=== PATIENT | female | born 1965 | race Caucasian/White ===

== ENCOUNTER 2020-03-30 15:22 | Outpatient (CLI) | payer OTHER, SELFPAY ==
[2020-03-31 21:06] LABS: SARS-CoV-2 RNA PCR Negative
== END 2020-03-30 15:23 | disposition home or self-care (01) ==
LOC: ANHCOVIDDT 15:26
PROVIDERS: PCP Internal Medicine; Visit Provider Family Medicine
DX: J02.9 Acute pharyngitis, unspecified (principal); Z20.822 Contact with and (suspected) exposure to COVID-19
CPT/HCPCS: C9803; U0003; U0005

== ENCOUNTER → 2020-04-06 06:50 | Outpatient (CLI) | payer OTHER, SELFPAY ==
[2020-04-07 01:37] LABS: SARS-CoV-2 RNA PCR Negative
== END ==
PROVIDERS: PCP Family Medicine; Visit Provider Family Medicine
DX: Z20.822 Contact with and (suspected) exposure to COVID-19 (principal)
CPT/HCPCS: C9803; U0003; U0005

== ENCOUNTER 2020-12-09 22:36 | Inpatient (IN) | payer OTHER, SELFPAY ==
--- NOTE | ~2020-12-09 | CT_ITS ---
EXAMINATION: CTA chest PE protocol DATE: 12/10/2020 09:01 CDT INDICATION: Shortness of breath. Elevated d-dimer. TECHNIQUE: Computed tomographic angiography (CTA) of the chest was performed with 100 mL Omnipaque-35 0 intravenous contrast. The dose-length product was 800.82 mGy-cm. Maximum intensity projection 3D-re constructions of the aorta and other arteries were constructed by the technologist on a separate work station. Automated exposure control and iterative reconstruction technique were employed. COMPARISON: CT dated 10/18/2015. FINDINGS: No thoracic lymphadenopathy. Study is technically adequate without evidence for pulmonary e mbolism. There is extensive patchy groundglass opacities throughout both lungs, consistent with pneum onia. Trace pleural effusions. No significant pericardial effusion. Cardiomegaly. There is mild media stinal and hilar lymphadenopathy, likely reactive. No pneumothorax. No endobronchial lesions. Moderat e thoracic spondylosis. IMPRESSION: 1. Extensive patchy bilateral groundglass opacities in both lungs, consistent with pneumonia. 2: No evidence for pulmonary embolism. Reviewed, dictated and finalized at location A. IMPRESSION: 1. Extensive patchy bilateral groundglass opacities in both lungs, consistent w ith pneumonia. 2: No evidence for pulmonary embolism.
--- NOTE | ~2020-12-09 | XR_ITS ---
EXAMINATION: XR chest 1V portable DATE: 12/09/2020 23:03 INDICATION: Cough and shortness of breath. TECHNIQUE: A single frontal view of the chest was obtained. COMPARISON: Chest 2 views 11/02/2016, chest CT 10/18/2015 FINDINGS: There are patchy airspace opacities throughout the lungs bilaterally. No pleural effusion o r pneumothorax. The heart size is normal. IMPRESSION: 1. Diffuse lung disease, consistent with pulmonary edema versus pneumonia. Reviewed, dictated and finalized at location A.
--- NOTE | 2020-12-09 22:40 | ECG_ITS ---
Measurements Intervals [place] Rate: 90 P: 59 IN: 155 QRS: 90 QRSD: 82 T: 45 QT: 328 QTc: 402 Interpretive Statements SINUS RHYTHM INCOMPLETE RIGHT BUNDLE BRANCH BLOCK DELAYED PRECORDIAL R/S TRANSITION LOW QRS VOLTAGE IN PRECORDIAL LEADS BORDERLINE T WAVE ABNORMALITY- ANT/INF LEADS BASELINE ARTIFACT- I, III, AVR, AVL BORDERLINE ECG Electronically Signed On 12-10-2020 6:20:52 CDT by Prieto Montelongo D.O.
[2020-12-09 22:43] VITALS: BP 123/70; PULSE 92; RESP 20; TEMP 37.4; O2SAT 83
[2020-12-09 23:05] VITALS: BP 127/75; PULSE 89; RESP 33; O2SAT 96
[2020-12-09 23:10] VITALS: O2SAT 99
--- NOTE | 2020-12-09 23:10 | ED.SOB ---
HPI - SOB/Dyspnea General Chief Complaint: Shortness of Breath/Dyspnea Stated Complaint: shortness of breath x 2 days Time Seen by Provider: 12/09/20 22:49 Source: patient and RN notes reviewed Mode of arrival: ambulatory Limitations: no limitations History of Present Illness HPI Narrative: This is a 55 year old female smoker with history of COPD and asthma who presents for evaluation of shortness of breath. She reports having worsening cough over the past 2 days. Her cough is productive with green sputum. She reports low grade fever, runny nose, sore throat and nausea. She denies chest pain, abdominal pain, vomiting or diarrhea. She states she has been vaccinated for covid but has not had booster. She was found to be hypoxic in triage and she denies history of oxygen dependence. SHe denies cardiac disease or new edema . Related Data Home Medications Medication Instructions Recorded Confirmed acetaminophen [Tylenol] 325 mg PO TID 12/10/20 12/10/20 albuterol sulfate 2 puff INHALATION QID 12/10/20 12/10/20 alprazolam 1 mg PO TID 12/10/20 12/10/20 cyclobenzaprine 10 mg PO TID 12/10/20 12/10/20 diclofenac sodium 100 mg PO DAILY 12/10/20 12/10/20 folic acid 1 mg PO DAILY 12/10/20 12/10/20 gabapentin 600 mg PO DAILY 12/10/20 12/10/20 lisinopril 20 mg PO DAILY 12/10/20 12/10/20 magnesium oxide 250 mg PO BID 12/10/20 12/10/20 methotrexate sodium 25 mg PO WEEKLY 12/10/20 12/10/20 brrpajymnthl-[id number]-bhljzd 1 tablet PO DAILY 12/10/20 12/10/20 [Centrum Silver] norethindrone acetate 5 mg PO DAILY 12/10/20 12/10/20 omeprazole 20 mg PO DAILY 12/10/20 12/10/20 prednisone 15 mg PO DAILY 12/10/20 12/10/20 sertraline 200 mg PO DAILY 12/10/20 12/10/20 tramadol 50 mg PO TID 12/10/20 12/10/20 vitamin E 400 unit PO DAILY 12/10/20 12/10/20 Allergies Allergy/AdvReac Type Severity Reaction Status Date / Time clarithromycin Allergy Mild Vomiting Verified 12/10/20 01:57 erythromycin base Allergy Mild Vomiting Verified 12/10/20 01:57 Review of Systems Review of Systems: All systems reviewed & are unremarkable except as noted in HPI and below PMFSH Past Medical History Medical History (Updated 12/10/20 @ 08:34 by Priscila Thompson MD) COPD (chronic obstructive pulmonary disease) Hypertension Rheumatoid arthritis Surgical History Surgical History (Updated 12/09/20 @ 23:52 by Priscila Thompson MD) History of hysterectomy Family History Family History Mother Cerebrovascular accident Diabetes mellitus History of blood clots Chronic obstructive pulmonary disease Father Family history of cardiovascular disease Acute myocardial infarction Chronic obstructive pulmonary disease Other Asthma Family history of allergic disorder Family history of kidney disease Family history of malignant neoplasm Hypertension Social History Social History (Updated 12/09/20 @ 23:51 by Priscila Thompson MD) Smoking packs per day: 1 Smoking cigarettes per day: 20.0 Years smoked: 20 Smoking pack-years: 20.00 Smoking status: Current every day smoker Tobacco type: cigarettes Alcohol intake: never Substance use: never Spiritual care concerns: No Exam Const: General: alert and ill appearing Nutritional Appearance: obese Orientation/consciousness: patient oriented x3 HENMT: Head: normocephalic and atraumatic Eyes: EOM: EOMs intact bilaterally Resp: Effort & Inspection: normal respiratory effort, not labored, no retractions and not tachypneic Auscultation: crackles Cardio: Rate: regular rate Rhythm: regular rhythm Heart sounds: no murmurs GI: GI Palp: Yes Soft to palpation, No Tenderness to palpation present (GI) and No Guarding due to palpation present (GI) Auscultation: normal bowel sounds Skin: General skin exam: normal color Rashes: no rashes Neuro: General: patient oriented x3, moves all extremities and CN's II-XI intact bila
[2020-12-09 23:40] LABS: Basophils Absolute Auto 0.1 K/mm3 (0.0-0.1); Basophils Percent Auto 0.4 % (0.2-1.2); Eosinophils Absolute Auto 0.5 K/mm3 (0-0.3); Eosinophils Percent Auto 3.8 % (0-4.4); Hematocrit 38.7 % (37.0-47.0); Hemoglobin 12.7 g/dL (12.0-15.0); Immature Granulocyte Absolute 0.09 K/mm3 (0.00-0.031); Immature Granulocyte Percent A 0.7 % (0-0.5); Lymphocytes Absolute Auto 1.22 K/mm3 (0.9-3.2); Lymphocytes Percent Auto 9.7 % (18.3-44.2); Mean Corpuscular HGB Conc 32.8 g/dl (32-36); Mean Corpuscular Volume 97.5 fl (80-100); Mean Platelet Volume 11.6 fl (7.4-10.4); Monocytes Absolute Auto 0.7 K/mm3 (0.1-0.6); Monocytes Percent Auto 5.8 % (2.6-8.5); Neutrophils Absolute Auto 10.1 K/mm3 (1.3-6.7); Neutrophils Percent Auto 79.6 % (45.5-73.1); Platelet Count Result 285 k/mm3 (150-375); Red Blood Count 3.97 M/mm3 (4.2-5.4); Red Cell Distribution Width 15.2 % (11.5-14.5); White Blood Count 12.6 K/mm3 (4.5-10.0)
[2020-12-09 23:58] LABS: Prothrombin Time 13.3 Seconds (11.1-14.7)
[2020-12-09 23:59] LABS: Partial Thromboplastin Time 32.8 SECONDS (22.3-36.8)
[2020-12-10] VITALS (19 sets, daily range): BP systolic 118–160; BP diastolic 72–90; PULSE 76–92; RESP 20–44; TEMP 36.8–37; O2SAT 96–100; BMI 43.0
[2020-12-10 00:17] LABS: Anion Gap 8 mmol/L (8-16); Blood Urea Nitrogen 17 mg/dL (7-17); Calcium 8.5 mg/dL (8.4-10.2); Carbon Dioxide 25 mmol/L (22-30); Chloride 108 mmol/L (98-107); Estimated Glomerular Filt Rate > 60; Glucose 112 mg/dL (65-110); Potassium 4.4 mmol/L (3.4-5.0); Sodium 141 mmol/L (137-145)
[2020-12-10 00:19] LABS: Alveolar/Arterial O2 Gradient 150.6 mmHg; Base Excess ABG -1.4 mEq/l (+/-2.0); Carboxyhemoglobin 1.6 % THb (0-2.0); Fractional Inspired Oxygen 36 %; HCO3 ABG 21.4 mEq/l (22.0-26.0); Methemoglobin ABG 0.1 %THb (0-1.5); Oxygen Content ABG 17.4 %vol (16.0-22.0); Oxygen Saturation ABG 95.3 % (95.0-100.0); PCO2 ABG 30.4 mmHg (35.0-45.0); PO2 ABG 70.8 mmHg (80.0-100.0); PO2 FiO2 Ratio Arterial Blood 1.97 %; Reduced Hemoglobin 5.3 %THb (0-5.0); Total Hemoglobin 13.3 g/dL (12.0-18.0); pH ABG 7.465 (7.350-7.450)
[2020-12-10 00:20] LABS: Device NASAL CANNULA; Modified Allen's Test Pass; Site Drawn RIGHT RADIAL
[2020-12-10 00:24] LABS: Alanine Aminotransferase 31 U/L (4-35); Albumin Level 3.9 g/dL (3.5-5.1); Alkaline Phosphatase 112 U/L (38-126); Aspartate Amino Transferase 52 U/L (14-36); Bilirubin,Total 0.7 mg/dL (0.2-1.3)
[2020-12-10 00:37] LABS: NT Pro B Type Natriuretic Pept 1880 pg/mL (5-100); Troponin I 0.179 ng/mL (0.000-0.034)
[2020-12-10 00:39] LABS: CRP 17.5 mg/dL (<1.0)
--- NOTE | 2020-12-10 01:29 | PC.NURSE ---
Pt in imaging at this time
[2020-12-10] MEDS: ALBUTEROL SULFATE NEB 2.5 MG/0.5 ML INH 5 MG INHALATION (03:01)
[2020-12-10] MEDS: IPRATROPIUM BR 0.02% INH SOLN 0.5 MG/2.5 ML VIAL INHALATION (03:02)
[2020-12-10] MEDS: predniSONE 20 MG TABLET 60 MG PO (03:34)
[2020-12-10 04:27] LABS: Troponin I 0.138 ng/mL (0.000-0.034)
--- NOTE | 2020-12-10 06:00 | ADMGEN ---
This patient, Jazmine Arthur, was admitted to IMU Room 232-01. Patient/family oriented to hospital policies and general routines including ID bracelet, bed and alarms, visiting hours, pain management, procedures, bathroom and other care routines, personal items, smoking policy, room service/diet, and visiting hours. Information on how to activate the Rapid Response Team has been discussed. Patient/Family are encouraged to report perceived risks to care and to ask questions if they do not understand what they are told or what they should do.
[2020-12-10 07:40] LABS: Troponin I 0.106 ng/mL (0.000-0.034)
--- NOTE | 2020-12-10 08:08 | PM.IMHP ---
H&P: HPI History of Present Illness Date/Time: 12/10/20 08:08 This is a 55 year old female smoker with history of COPD and asthma who presents for evaluation of shortness of breath. The patient was in his usual state of health until last Saturday. There is no established sick contact. She reports having worsening cough over the past 2 days. Her cough is productive with greenish and brownish sputum. She endorses a low grade fever, runny nose, sore throat and nausea. She denies chest pain, abdominal pain, vomiting or diarrhea. She states she has been fully vaccinated for covid but has not had booster. On admission in the emergency department she has the following vital signs: Tmax 98.3 F, pulse rate 91, R 20, pulse ox 99% on oxygen 5 liters via nasal canula. She was found to be hypoxic in triage and she denies history of oxygen dependence. She denies cardiac disease or new edema . Chest Xray was performed. She was started on intravenous levofloxacin. The patient was admitted inpatient to the stepdown unit. Chief Complaint: shortness of bretah productive cough Review of Systems Review of Systems: ROS unobtainable: Yes unobtainable due to endotracheal tube Constitutional: Constitutional: Reports fatigue Comments: fever Eyes: Eyes: Reports no additional eye complaints ENT: Reports system reviewed and no additional complaints, except as documented Cardiovascular: Cardiovascular: Reports no additional cardiovascular complaints Respiratory: Respiratory: Reports cough and Reports dyspnea Gastrointestinal: Gastrointestinal: Denies abdominal pain, Denies diarrhea, Denies nausea and Denies vomiting Comments: dysphagia Genitourinary: Genitourinary: Reports no additional female genitourinary complaints Musculoskeletal: Musculoskeletal: Reports no additional musculoskeletal complaints Integumentary/Breasts: Skin/Breast: Denies rash Neurologic: Reports system reviewed and no additional complaints, except as documented Psychiatric: Psychiatric: Reports no additional psychiatric complaints FOR[facility]LY [facility], [facility] Past Medical History Medical History (Updated 12/10/20 @ 16:44 by Natasha Baird MD) COPD (chronic obstructive pulmonary disease) Hypertension Rheumatoid arthritis Surgical History Surgical History (Updated 12/09/20 @ 23:52 by Priscila Thompson MD) History of hysterectomy Family History Family History Mother Cerebrovascular accident Diabetes mellitus History of blood clots Chronic obstructive pulmonary disease Father Family history of cardiovascular disease Acute myocardial infarction Chronic obstructive pulmonary disease Other Asthma Family history of allergic disorder Family history of kidney disease Family history of malignant neoplasm Hypertension Social History Social History (Updated 12/09/20 @ 23:51 by Priscila Thompson MD) Smoking packs per day: 1 Smoking cigarettes per day: 20.0 Years smoked: 20 Smoking pack-years: 20.00 Smoking status: Current every day smoker Tobacco type: cigarettes Alcohol intake: never Substance use: never Spiritual care concerns: No Meds Home Medications and Allergies Home Medications Medication Instructions Recorded Confirmed Type acetaminophen [Tylenol] 325 mg PO TID 12/10/20 12/10/20 History albuterol sulfate 2 puff INHALATION QID 12/10/20 12/10/20 History alprazolam 1 mg PO TID 12/10/20 12/10/20 History cyclobenzaprine 10 mg PO TID 12/10/20 12/10/20 History diclofenac sodium 100 mg PO DAILY 12/10/20 12/10/20 History folic acid 1 mg PO DAILY 12/10/20 12/10/20 History gabapentin 600 mg PO DAILY 12/10/20 12/10/20 History lisinopril 20 mg PO DAILY 12/10/20 12/10/20 History magnesium oxide 250 mg PO BID 12/10/20 12/10/20 History methotrexate sodium 25 mg PO WEEKLY 12/10/20 12/10/20 History udqlyhsfcfzf-kntjotek-nacwtb 1 tablet PO DAILY 12/10/20 12/10/20 History [Centrum Silver]
[2020-12-10] MEDS: ACETAMINOPHEN 325 MG TABLET PO ×3 (10:01→16:52)
[2020-12-10] MEDS: GABAPENTIN 300 MG CAPSULE 600 MG PO (10:02)
[2020-12-10] MEDS: CYCLOBENZAPRINE HCL 10 MG TABLET PO ×3 (10:02→16:52)
[2020-12-10] MEDS: ALPRAZolam (*CRX) 0.5 MG TABLET 1 MG PO ×3 (10:02→16:52)
[2020-12-10] MEDS: traMADol HCL (*CRX) 50 MG TABLET PO ×3 (10:02→16:52)
[2020-12-10] MEDS: SERTRALINE HCL 50 MG TABLET 200 MG PO (10:03)
[2020-12-10] MEDS: predniSONE 5 MG TABLET 15 MG PO (10:03)
[2020-12-10] MEDS: PANTOPRAZOLE 40 MG TABLET PO (10:04)
[2020-12-10] MEDS: VITAMIN E 400 UNIT CAPSULE PO (10:04)
[2020-12-10] MEDS: FOLIC ACID 1 MG TABLET PO (10:04)
[2020-12-10] MEDS: lisinopriL 20 MG TABLET PO (10:05)
[2020-12-10] MEDS: ALBUTEROL SULFATE (*SP) AEROSOL 1 PUFF 2 PUFF INHALATION ×3 (13:34→17:00)
[2020-12-10 17:03] LABS: SARS-CoV-2 RNA PCR Negative
[2020-12-10 18:16] LABS: Troponin I 0.027 ng/mL (0.000-0.034)
[2020-12-11] VITALS (17 sets, daily range): BP systolic 104–148; BP diastolic 51–91; PULSE 70–90; RESP 16–24; TEMP 36.3–37.1; O2SAT 92–100
[2020-12-11 05:32] LABS: Basophils Percent Auto 0.2 % (0.2-1.2); Eosinophils Absolute Auto 0.3 K/mm3 (0-0.3); Eosinophils Percent Auto 1.7 % (0-4.4); Hematocrit 37.1 % (37.0-47.0); Hemoglobin 12.1 g/dL (12.0-15.0); Immature Granulocyte Absolute 0.15 K/mm3 (0.00-0.031); Lymphocytes Absolute Auto 1.84 K/mm3 (0.9-3.2); Lymphocytes Percent Auto 12.3 % (18.3-44.2); Mean Corpuscular HGB Conc 32.6 g/dl (32-36); Mean Corpuscular Hemoglobin 32.1 pg (26-34); Mean Corpuscular Volume 98.4 fl (80-100); Mean Platelet Volume 11.5 fl (7.4-10.4); Monocytes Absolute Auto 0.9 K/mm3 (0.1-0.6); Monocytes Percent Auto 6.1 % (2.6-8.5); Neutrophils Absolute Auto 11.8 K/mm3 (1.3-6.7); Neutrophils Percent Auto 78.7 % (45.5-73.1); Platelet Count Result 281 k/mm3 (150-375); Red Blood Count 3.77 M/mm3 (4.2-5.4); Red Cell Distribution Width 15.1 % (11.5-14.5)
[2020-12-11 05:48] LABS: Alanine Aminotransferase 33 U/L (4-35); Albumin Level 3.5 g/dL (3.5-5.1); Alkaline Phosphatase 101 U/L (38-126); Anion Gap 6 mmol/L (8-16); Aspartate Amino Transferase 28 U/L (14-36); Bilirubin,Total 0.4 mg/dL (0.2-1.3); Blood Urea Nitrogen 18 mg/dL (7-17); Carbon Dioxide 32 mmol/L (22-30); Chloride 102 mmol/L (98-107); Estimated CRCL calculation 81 ml/min; Estimated Glomerular Filt Rate > 60; Glucose 97 mg/dL (65-110); Potassium 4.4 mmol/L (3.4-5.0); Sodium 140 mmol/L (137-145)
[2020-12-11 05:56] LABS: Troponin I 0.023 ng/mL (0.000-0.034)
[2020-12-11] MEDS: ALBUTEROL SULFATE (*SP) AEROSOL 1 PUFF 2 PUFF INHALATION ×4 (08:20→21:03)
[2020-12-11] MEDS: ALPRAZolam (*CRX) 0.5 MG TABLET 1 MG PO ×3 (08:31→18:13)
[2020-12-11] MEDS: traMADol HCL (*CRX) 50 MG TABLET PO ×3 (08:31→18:13)
[2020-12-11] MEDS: ACETAMINOPHEN 325 MG TABLET PO ×3 (08:31→18:13)
[2020-12-11] MEDS: CYCLOBENZAPRINE HCL 10 MG TABLET PO ×3 (08:31→18:13)
[2020-12-11] MEDS: predniSONE 5 MG TABLET PO (08:32)
[2020-12-11] MEDS: VITAMIN E 400 UNIT CAPSULE PO (08:32)
[2020-12-11] MEDS: SERTRALINE HCL 50 MG TABLET 200 MG PO (08:32)
[2020-12-11] MEDS: PANTOPRAZOLE 40 MG TABLET PO (08:33)
[2020-12-11] MEDS: lisinopriL 20 MG TABLET PO (08:33)
[2020-12-11] MEDS: GABAPENTIN 300 MG CAPSULE 600 MG PO (08:33)
[2020-12-11] MEDS: MAGNESIUM OXIDE 200 MG TABLET PO ×2 (08:34→18:14)
[2020-12-11] MEDS: METHOTREXATE 2.5 MG TAB (*CHEMO) 25 MG PO (08:34)
[2020-12-11] MEDS: FOLIC ACID 1 MG TABLET PO (08:34)
--- NOTE | 2020-12-11 09:39 | ECG_ITS ---
Measurements Intervals [place] Rate: 83 P: 64 [place]: 132 QRS: 69 QRSD: 107 T: 14 QT: 398 QTc: 468 Interpretive Statements SINUS RHYTHM ATRIAL AND VENTRICULAR PREMATURE COMPLEXES BORDERLINE T WAVE ABNORMALITY- ANTERIOR LEADS BASELINE ARTIFACT- I, III, AVL, AVF, V6 BORDERLINE ECG Electronically Signed On 12-11-2020 14:32:53 CDT by Prieto Montelongo D.O.
--- NOTE | 2020-12-11 10:43 | PM.IMPN ---
Progress Note: A&P Assessment and Plan (1) Acute respiratory failure with hypoxia: Code(s): J96.01 - Acute respiratory failure with hypoxia Status: Acute Assessment and Plan: Admitted to IMU Respiratory status has improved overnight. COVID test negative Currently weaned to room air Baseline diagnosis of asthma, and COPD Currently no evidence of COPD/asthma exacerbation Continue inhaler as needed; nebulizer s/p prednisone 60 mg once on 12/09/2020. Currently steroids on hold. (2) Pneumonia: Qualifiers: Laterality: bilateral Pneumonia type: due to unspecified organism Code(s): J18.9 - Pneumonia, unspecified organism Status: Acute Assessment and Plan: Patient presents classic symptoms of community acquired pneumonia. Chest Xray suggests diffuse lung disease, consistent with pulmonary edema versus bronchopneumonia. We will continue IV levaquin. Blood cultures are currently pending. (3) Person under investigation for COVID-19: Code(s): Z20.822 - Contact with and (suspected) exposure to COVID-19 Status: Acute Assessment and Plan: COVID PCR is negative. Patient is fully vaccinated No known sick contact Stop aerosol and contact precautions (4) Smoking greater than 20 pack years: Code(s): F17.210 - Nicotine dependence, cigarettes, uncomplicated Status: Acute Assessment and Plan: Smoking cessation Nicotine patch PRN (5) Hypertension: Code(s): I10 - Essential (primary) hypertension Status: Acute Assessment and Plan: Moderately controlled. Current BP 136/91. Continue lisinopril 20 mg PO daily (6) Rheumatoid arthritis: Code(s): M06.9 - Rheumatoid arthritis, unspecified Status: Acute Assessment and Plan: Previously on methotrexate 25 mg PO weekly and prednisone 15 mg PO daily. Prednisone 60 mg PO once given on 12/09/2020. Decrease prednisone to 5 mg PO daily due to acute illness. (7) Nausea: Code(s): R11.0 - Nausea Status: Acute Assessment and Plan: Unspecific. Give zofran and tums PRN. Subjective Date/time seen: 12/11/20 10:43 S: Patient is examined at the bedside. She is saturating 91% on room air. She is motivated to stop smoking. She reports nausea, which is also a side effect with the methotrexate that was started 2 months ago. Nausea started prior to methotexate administration. Review of Systems Constitutional: Constitutional: Reports difficulty sleeping and Reports fatigue Eyes: Eyes: Reports no additional eye complaints ENT: Reports system reviewed and no additional complaints, except as documented Cardiovascular: Cardiovascular: Reports no additional cardiovascular complaints and Reports dyspnea Respiratory: Respiratory: Reports cough and Reports dyspnea Gastrointestinal: Gastrointestinal: Denies abdominal pain, Denies diarrhea, Denies nausea and Denies vomiting Genitourinary: Genitourinary: Reports no additional female genitourinary complaints Musculoskeletal: Musculoskeletal: Reports no additional musculoskeletal complaints Integumentary/Breasts: Skin/Breast: Denies rash Neurologic: Reports system reviewed and no additional complaints, except as documented Psychiatric: Psychiatric: Reports no additional psychiatric complaints Endocrine: Endocrine: Reports fatigue Exam Const: General: comfortable and no acute distress HENMT: Mouth: Yes moist mucous membranes Eyes: General: appearance normal, both eyes and all related structures Neck: Neck: supple and no JVD Lymphatic: lymphadenopathy not noted Resp: Auscultation: no crackles, rhonchi, no wheezes and diminished lung sounds Cardio: Rate: regular rate Rhythm: regular rhythm Heart sounds: no gallops, no murmurs and no rubs GI: Inspection: non-distended GI Palp: Yes Soft to palpation and No Tenderness to palpation present (GI) Skin: General skin exam: no rashes or lesions noted Neuro:
--- NOTE | 2020-12-11 11:18 | PC.NURSE ---
Daughter called back and was given an update on this patients condition and current plan of care. All questions answered per Kaya.
[2020-12-11] MEDS: WATER FOR IRRIGATION, STERILE 1,000 ML BOTTLE 1000 ML (11:55)
[2020-12-11] MEDS: NICOTINE (*PBKC) 4 MG GUM PO (15:35)
[2020-12-12] VITALS (11 sets, daily range): BP systolic 100–138; BP diastolic 51–72; PULSE 72–84; RESP 16–28; TEMP 36–36.8; O2SAT 90–97
--- NOTE | 2020-12-12 | ECHO_ITS ---
Patient Info Name: Jazmine Arthur Age: 55 years : 1965 Gender: Female Ht: 62 in Wt: 235 lbs BSA: 2.22 m2 HR: 75 bpm BP: 113 / 68 mmHg Technical Quality: Fair Exam Date: 12/12/2020 9:44 AM Exam Location: [facility] Patient Status: Inpatient Admit Date: 12/10/2020 Staff Ordering Physician: Natasha Baird MD Wind Turbine Electrical Engineer: Archie Garcia, ASH, RT Attending Provider: Nina Parikh MD Exam Type: CA echo doppler color flow Study Info Indications I50.9 - Heart failure, unspecified Complete two-dimensional, color flow and Doppler transthoracic echocardiogram is performed. Strain analysis performed. Summary 1. Complete two-dimensional, color flow and Doppler transthoracic echocardiogram is performed. 2. Left ventricular chamber dimension is normal. 3. Left ventricular systolic function is normal, estimated at 65-70%. 4. The left ventricular diastolic function is grade I diastolic dysfunction. 5. E/e' 12 is mildly elevated. 6. Global longitudinal strain is normal at -18.2%. 7. There is trivial pericardial effusion. Left Ventricle E/e' 12 is mildly elevated. Global longitudinal strain is normal at -18.2%. Left ventricular chamber dimension is normal. Left ventricular systolic function is normal, estimated at 65-70%. The left ventricular diastolic function is grade I diastolic dysfunction. Right Ventricle Right ventricular systolic function is normal and with normal TAPSE 2.7 cm. Right ventricular chamber dimension is normal. Left Atria Left atrial chamber dimension is normal. Right Atria Right atrial chamber dimension is normal. Aortic Valve The aortic valve is trileaflet. There is no aortic valve stenosis. There is no aortic valve regurgitation. Pulmonic Valve There is no pulmonic regurgitation. Mitral Valve There is no mitral valve stenosis. There is no mitral valve regurgitation. Tricuspid Valve There is no tricuspid valve regurgitation. Pericardium/Pleural There is trivial pericardial effusion. Inferior Vena Cava Normal inferior vena cava with >50% collapse upon inspiration consistent with normal right atrial pressure, 5 mmHg. Aorta The aortic root size at the sinus of Valsalva is normal. Left Ventricular Outflow Tract Name Value Normal LVOT 2D LVOT Diameter 2.1 cm LVOT Doppler LVOT Peak Gradient 5 mmHg LVOT Mean Gradient 3 mmHg LVOT VTI 21 cm LVOT VTI/AV VTI Ratio 0.7 LVOT Stroke Volume 75 ml LVOT CO 5.8 l/min LVOT CI 2.6 l/min/m2 Mitral Valve Name Value Normal MV Doppler MV Decel [place] 319 cm/s2 MV PHT 82 ms
[2020-12-12] MEDS: ALBUTEROL SULFATE (*SP) AEROSOL 1 PUFF 2 PUFF INHALATION ×4 (08:37→19:43)
[2020-12-12] MEDS: CYCLOBENZAPRINE HCL 10 MG TABLET PO ×3 (09:43→17:52)
[2020-12-12] MEDS: ACETAMINOPHEN 325 MG TABLET PO ×3 (09:43→17:52)
[2020-12-12] MEDS: predniSONE 5 MG TABLET PO (09:43)
[2020-12-12] MEDS: OPTI-GEN TAB 1 TABLET PO (09:44)
[2020-12-12] MEDS: VITAMIN E 400 UNIT CAPSULE PO (09:44)
[2020-12-12] MEDS: MAGNESIUM OXIDE 200 MG TABLET PO ×2 (09:44→17:52)
[2020-12-12] MEDS: GABAPENTIN 300 MG CAPSULE 600 MG PO (09:44)
[2020-12-12] MEDS: ENOXAPARIN 40 MG/0.4 ML SYRINGE SUB-Q (09:44)
[2020-12-12] MEDS: PANTOPRAZOLE 40 MG TABLET PO (09:44)
[2020-12-12] MEDS: lisinopriL 20 MG TABLET PO (09:44)
[2020-12-12] MEDS: FOLIC ACID 1 MG TABLET PO (09:45)
[2020-12-12] MEDS: SERTRALINE HCL 50 MG TABLET 200 MG PO (09:45)
[2020-12-12] MEDS: traMADol HCL (*CRX) 50 MG TABLET PO ×3 (09:47→17:52)
[2020-12-12] MEDS: ALPRAZolam (*CRX) 0.5 MG TABLET 1 MG PO ×3 (09:47→17:52)
[2020-12-12] MEDS: NICOTINE (*PBKC) 4 MG GUM PO (09:50)
--- NOTE | 2020-12-12 11:36 | PM.IMPN ---
Progress Note: A&P Assessment and Plan (1) Acute respiratory failure with hypoxia: Code(s): J96.01 - Acute respiratory failure with hypoxia Status: Acute Assessment and Plan: [facility] Respiratory status has improved overnight. Currently on 2liters HOme O2 eval in AM. Baseline diagnosis of asthma, and COPD Currently no evidence of COPD/asthma exacerbation Continue inhaler as needed; nebulizer s/p prednisone 60 mg once on 12/09/2020. Currently steroids on hold. (2) Pneumonia: Qualifiers: Laterality: bilateral Pneumonia type: due to unspecified organism Code(s): J18.9 - Pneumonia, unspecified organism Status: Acute Assessment and Plan: Patient presents classic symptoms of community acquired pneumonia. Chest Xray suggests diffuse lung disease, consistent with pulmonary edema versus bronchopneumonia. We will continue IV levaquin. Blood cultures are non revealing. (3) Smoking greater than 20 pack years: Code(s): F17.210 - Nicotine dependence, cigarettes, uncomplicated Status: Acute Assessment and Plan: Smoking cessation decrease nicotine gum to 2 G Chew gum slowly (4) Hypertension: Code(s): I10 - Essential (primary) hypertension Status: Acute Assessment and Plan: Moderately controlled. Current BP 136/91. Continue lisinopril 20 mg PO daily (5) Rheumatoid arthritis: Code(s): M06.9 - Rheumatoid arthritis, unspecified Status: Acute Assessment and Plan: Previously on methotrexate 25 mg PO weekly and prednisone 15 mg PO daily. Prednisone 60 mg PO once given on 12/09/2020. Decrease prednisone to 5 mg PO daily due to acute illness. (6) Nausea: Code(s): R11.0 - Nausea Status: Acute Assessment and Plan: Unspecific. Give zofran and tums PRN. (7) Buttock pain: Code(s): M79.18 - Myalgia, other site Status: Acute Assessment and Plan: Frequent repositioning every 2 hrs. Subjective Date/time seen: 12/12/20 10:36 S: PAtient is examined at the bedside. She feel better overall. She reports buttock pain and nausea with nicotine gum. Review of Systems Review of Systems: ROS unobtainable: Yes unobtainable due to endotracheal tube Eyes: Eyes: Reports no additional eye complaints ENT: Reports system reviewed and no additional complaints, except as documented Cardiovascular: Cardiovascular: Reports no additional cardiovascular complaints and Reports dyspnea Respiratory: Respiratory: Reports cough and Reports dyspnea Gastrointestinal: Gastrointestinal: Denies abdominal pain, Denies diarrhea, Reports nausea and Denies vomiting Genitourinary: Genitourinary: Reports no additional female genitourinary complaints Musculoskeletal: Comments: Buttock pain. Integumentary/Breasts: Skin/Breast: Reports system reviewed and no additional complaints, except as docu and Denies rash Neurologic: Reports system reviewed and no additional complaints, except as documented Psychiatric: Psychiatric: Reports no additional psychiatric complaints Endocrine: Endocrine: Reports fatigue Exam Const: General: comfortable and no acute distress HENMT: Mouth: Yes moist mucous membranes Eyes: General: appearance normal, both eyes and all related structures Neck: Neck: supple and no JVD Lymphatic: lymphadenopathy not noted Resp: Auscultation: no crackles, rhonchi, no wheezes and diminished lung sounds Cardio: Rate: regular rate Rhythm: regular rhythm Heart sounds: no gallops, no murmurs and no rubs GI: Inspection: non-distended Skin: General skin exam: no rashes or lesions noted Neuro: General: gait normal Cognition (Neuro): normal cognition Speech: normal speech Extrem: General: normal to inspection Right upper extremity: normal to inspection Left upper extremity: normal to inspection Right lower extremity: normal to inspection Psych: Mental Status: mental status grossly norm
[2020-12-12] MEDS: NICOTINE (*PBKC) 2 MG GUM PO (13:05)
--- NOTE | 2020-12-12 17:30 | PC.NURSE ---
This patient, Jazmine Arthur, was received from IMU on 12/12/20 at 1730. Received report from EMMA Tao. Patient/family oriented to unit policies and routines.
--- NOTE | 2020-12-12 17:42 | PC.NURSE ---
This patient, Jazmine Arthur, was transferred to [ [facility]] on 12/12/20 at 1735. Personal belongings sent with patient. Report given to [ EMMA Martinez @ [id number]]. Appropriate documentation sent with patient.
[2020-12-13 05:50] VITALS: BP 115/62; PULSE 80; RESP 18; TEMP 36.1; O2SAT 98
[2020-12-13 06:51] LABS: Basophils Percent Auto 0.4 % (0.2-1.2); Eosinophils Absolute Auto 0.6 K/mm3 (0-0.3); Eosinophils Percent Auto 5.4 % (0-4.4); Hematocrit 36.6 % (37.0-47.0); Hemoglobin 11.5 g/dL (12.0-15.0); Immature Granulocyte Absolute 0.22 K/mm3 (0.00-0.031); Lymphocytes Absolute Auto 1.97 K/mm3 (0.9-3.2); Lymphocytes Percent Auto 17.9 % (18.3-44.2); Mean Corpuscular HGB Conc 31.4 g/dl (32-36); Mean Corpuscular Hemoglobin 31.7 pg (26-34); Mean Corpuscular Volume 100.8 fl (80-100); Mean Platelet Volume 11.2 fl (7.4-10.4); Monocytes Absolute Auto 0.6 K/mm3 (0.1-0.6); Monocytes Percent Auto 5.6 % (2.6-8.5); Neutrophils Absolute Auto 7.5 K/mm3 (1.3-6.7); Neutrophils Percent Auto 68.7 % (45.5-73.1); Platelet Count Result 260 k/mm3 (150-375); Red Blood Count 3.63 M/mm3 (4.2-5.4); Red Cell Distribution Width 14.8 % (11.5-14.5)
[2020-12-13 07:12] LABS: Anion Gap 6 mmol/L (8-16); Blood Urea Nitrogen 15 mg/dL (7-17); Calcium 8.6 mg/dL (8.4-10.2); Carbon Dioxide 32 mmol/L (22-30); Chloride 101 mmol/L (98-107); Estimated CRCL calculation 74 ml/min; Estimated Glomerular Filt Rate > 60; Glucose 88 mg/dL (65-110); Potassium 3.8 mmol/L (3.4-5.0); Sodium 139 mmol/L (137-145)
[2020-12-13] MEDS: ALBUTEROL SULFATE (*SP) AEROSOL 1 PUFF 2 PUFF INHALATION ×2 (07:42→11:33)
[2020-12-13 07:47] VITALS: O2SAT 92
[2020-12-13] MEDS: SERTRALINE HCL 50 MG TABLET 200 MG PO (08:39)
[2020-12-13] MEDS: lisinopriL 20 MG TABLET PO (08:39)
[2020-12-13] MEDS: GABAPENTIN 300 MG CAPSULE 600 MG PO (08:39)
[2020-12-13] MEDS: CYCLOBENZAPRINE HCL 10 MG TABLET PO ×2 (08:39→13:56)
[2020-12-13] MEDS: ENOXAPARIN 40 MG/0.4 ML SYRINGE SUB-Q (08:40)
[2020-12-13] MEDS: predniSONE 5 MG TABLET PO (08:40)
[2020-12-13] MEDS: PANTOPRAZOLE 40 MG TABLET PO (08:40)
[2020-12-13] MEDS: ACETAMINOPHEN 325 MG TABLET PO ×2 (08:40→13:56)
[2020-12-13] MEDS: OPTI-GEN TAB 1 TABLET PO (08:40)
[2020-12-13] MEDS: MAGNESIUM OXIDE 200 MG TABLET PO (08:40)
[2020-12-13] MEDS: FOLIC ACID 1 MG TABLET PO (08:40)
[2020-12-13] MEDS: VITAMIN E 400 UNIT CAPSULE PO (08:40)
[2020-12-13] MEDS: traMADol HCL (*CRX) 50 MG TABLET PO ×2 (08:42→13:57)
[2020-12-13] MEDS: ALPRAZolam (*CRX) 0.5 MG TABLET 1 MG PO ×2 (08:42→13:56)
--- NOTE | 2020-12-13 08:51 | PM.IMPN ---
Progress Note: A&P Assessment and Plan (1) Acute respiratory failure with hypoxia: Code(s): J96.01 - Acute respiratory failure with hypoxia Status: Acute Assessment and Plan: Transfer to [facility] Respiratory status has improved overnight. Currently on 2liters HOme O2 eval in AM. Baseline diagnosis of asthma, and COPD Currently no evidence of COPD/asthma exacerbation Continue inhaler as needed; nebulizer s/p prednisone 60 mg once on 12/09/2020. Currently steroids on hold. (2) Pneumonia: Qualifiers: Laterality: bilateral Pneumonia type: due to unspecified organism Code(s): J18.9 - Pneumonia, unspecified organism Status: Acute Assessment and Plan: Patient presents classic symptoms of community acquired pneumonia. Chest Xray suggests diffuse lung disease, consistent with pulmonary edema versus bronchopneumonia. We will continue IV levaquin. Blood cultures are non revealing. (3) Smoking greater than 20 pack years: Code(s): F17.210 - Nicotine dependence, cigarettes, uncomplicated Status: Acute Assessment and Plan: Smoking cessation decrease nicotine gum to 2 G Chew gum slowly (4) Hypertension: Code(s): I10 - Essential (primary) hypertension Status: Acute Assessment and Plan: Moderately controlled. Current BP 136/91. Continue lisinopril 20 mg PO daily (5) Rheumatoid arthritis: Code(s): M06.9 - Rheumatoid arthritis, unspecified Status: Acute Assessment and Plan: Previously on methotrexate 25 mg PO weekly and prednisone 15 mg PO daily. Prednisone 60 mg PO once given on 12/09/2020. Decrease prednisone to 5 mg PO daily due to acute illness. (6) Nausea: Code(s): R11.0 - Nausea Status: Acute Assessment and Plan: Unspecific. Give zofran and tums PRN. (7) Buttock pain: Code(s): M79.18 - Myalgia, other site Status: Acute Assessment and Plan: Frequent repositioning every 2 hrs. Subjective Date/time seen: 12/13/20 08:51 Objective Data Vital Signs Vital Signs: Vital Signs - 24 hr 12/12/20 10:00 12/12/20 16:00 12/12/20 19:44 Temperature 36.8 C Pulse Rate 78 77 Respiratory Rate 22 H Blood Pressure 116/72 Pulse Oximetry 94 90 12/12/20 23:42 12/12/20 23:56 12/13/20 05:50 Temperature 36.0 C L 36.1 C L Pulse Rate 77 80 Respiratory Rate 16 18 Blood Pressure 100/51 L 115/62 Pulse Oximetry 90 93 98 12/13/20 07:47 Temperature Pulse Rate Respiratory Rate Blood Pressure Pulse Oximetry 92 Intake/Output Intake/Output: Intake & Output 12/10/20 12/11/20 12/12/20 12/13/20 23:59 23:59 23:59 23:59 Intake Total 655 140 4430 150 Output Total 2100 3225 Balance 990 -1400 -1615 150 Meds/Results Medications: Active Medications Generic Name Dose Route Start Last Admin Trade Name Freq PRN Reason Stop Dose Admin Acetaminophen 325 mg 12/10/20 09:00 12/13/20 08:40 Acetaminophen 325 Mg Tablet PO 325 mg TID CHANDLER Administration Albuterol 2 puff 12/10/20 08:00 12/13/20 07:42 Albuterol Sulfate (*Sp) Aerosol 1 Puff INHALATION 2 puff QIDRT CHANDLER Administration Albuterol 5 mg 12/11/20 10:51 Albuterol Sulfate Neb 2.5 Mg/0.5 Ml Inh INHALATION Q6HRT PRN Wheezing Alprazolam 1 mg 12/10/20 09:00 12/13/20 08:42 Alprazolam (*Crx) 0.5 Mg Tablet PO 1 mg TID CHANDLER Administration Calcium Carbonate 200 mg 12/12/20 11:35 Calcium Carbonate (Tums) 500 Mg (200 Mg Elemental) PO Q6H PRN Indigestion Cyclobenzaprine HCl 10 mg 12/10/20 09:00 12/13/20 08:39 Cyclobenzaprine Hcl 10 Mg Tablet PO 10 mg TID CHANDLER Administration Enoxaparin Sodium 40 mg 12/12/20 09:00 12/13/20 08:40 Enoxaparin 40 Mg/0.4 Ml Syringe SUB-Q 40 mg DAILY CHANDLER Administration Folic Acid 1 mg 12/10/20 09:00 12/13/20 08:40 Folic Acid 1 Mg Tablet PO 1 mg DAILY CHANDLER Administration Gabapentin 600 mg 12/10/20 0
[2020-12-13 11:36] VITALS: O2SAT 94
--- NOTE | 2020-12-13 13:28 | PM.DS ---
DS: Admitting Diagnosis Discharge Date 12/13/2020 Admitting Diagnosis SOB DS: Discharge Diagnosis Discharge Diagnosis (1) Acute respiratory failure with hypoxia: Code(s): J96.01 - Acute respiratory failure with hypoxia Status: Resolved Assessment and Plan: Pt is stable for discharge, breathing is better history of asthma, and COPD (2) Pneumonia: Qualifiers: Laterality: bilateral Pneumonia type: due to unspecified organism Code(s): J18.9 - Pneumonia, unspecified organism Status: Acute Assessment and Plan: Patient presents classic symptoms of community acquired pneumonia. Chest Xray suggests diffuse lung disease, consistent with pulmonary edema versus bronchopneumonia. transition iv Levaquin to oral (3) Smoking greater than 20 pack years: Code(s): F17.210 - Nicotine dependence, cigarettes, uncomplicated Status: Acute Assessment and Plan: Smoking cessation (4) Hypertension: Code(s): I10 - Essential (primary) hypertension Status: Acute Assessment and Plan: Well controlled Continue lisinopril 20 mg PO daily (5) Rheumatoid arthritis: Code(s): M06.9 - Rheumatoid arthritis, unspecified Status: Chronic Assessment and Plan: Previously on methotrexate 25 mg PO weekly and prednisone 15 mg PO daily. Prednisone 60 mg PO once given on 12/09/2020. (6) Nausea: Code(s): R11.0 - Nausea Status: Resolved Assessment and Plan: Give zofran and tums PRN. (7) Buttock pain: Code(s): M79.18 - Myalgia, other site Status: Resolved Assessment and Plan: Frequent repositioning every 2 hrs. DS: Summary Hospital Course Hospital Course: She feel better overall. Pt is stable for discharge, breathing is better found to have CAP . treated with iv levaquin dc on oral levaquin. Pt had history of RA and HTN. home medications resumed. Time Spent with Patient Time attestation: Total time spent providing and/or coordinating discharge services:45 minutes on day of discharge Exam Const: General: comfortable and no acute distress HENMT: Mouth: Yes moist mucous membranes Eyes: General: appearance normal, both eyes and all related structures Neck: Neck: supple and no JVD Lymphatic: lymphadenopathy not noted Resp: Auscultation: no crackles, rhonchi, no wheezes and diminished lung sounds Cardio: Rate: regular rate Rhythm: regular rhythm Heart sounds: no gallops, no murmurs and no rubs GI: Inspection: non-distended Skin: General skin exam: no rashes or lesions noted Neuro: General: gait normal Cognition (Neuro): normal cognition Speech: normal speech Extrem: General: normal to inspection Right upper extremity: normal to inspection Left upper extremity: normal to inspection Right lower extremity: normal to inspection Psych: Mental Status: mental status grossly normal Affect: normal affect DS: Data Data Completed and Pending Labs on day of discharge: Labs from last 24 hours 12/13/20 12/13/20 05:54 05:54 WBC 11.0 H RBC 3.63 L Hgb 11.5 L Hct 36.6 L MCV 100.8 H MCH 31.7 MCHC 31.4 L RDW 14.8 H Plt Count 260 MPV 11.2 H Immature Gran % (Auto) 2.0 H Neut % (Auto) 68.7 Lymph % (Auto) 17.9 L Weld % (Auto) 5.6 Eos % (Auto) 5.4 H Baso % (Auto) 0.4 Lymph # (Auto) 1.97 Weld # (Auto) 0.6 Eos # (Auto) 0.6 H Baso # (Auto) 0.0 Abs Immat Gran (auto) 0.22 H Absolute Neuts (auto) 7.5 H Absolute Nucleated RBC 0.0 Nucleated RBC % 0.0 Sodium 139 Potassium 3.8 Chloride 101 Carbon Dioxide 32 H Anion Gap 6 L BUN 15 Creatinine 0.90 Estim Creat Clear Calc 74 Estimated GFR > 60 Glucose 88 Calcium 8.6 Preliminary micro results at discharge 12/10/20 01:53 Blood Culture - Preliminary Blood 12/09/20 23:25 Blood Culture - Preliminary Blood Discharge Plan Discharge Attending physician on dis
[2020-12-13 13:53] VITALS: O2SAT 92
[2020-12-13 14:00] VITALS: BP 130/72; PULSE 91; RESP 18; TEMP 35.8; O2SAT 96
[2020-12-14 23:27] LABS: Pneumococcal Antigen Urine Not Detected (Not Detected)
[2020-12-15 16:40] LABS: Legionella pneumophila Ag Ur Not Detected (Not Detected)
== END 2020-12-13 15:35 | disposition home or self-care (01) | DRG 193 ==
LOC: ANHED 12-10 00:35 → ANHIMU 12-10 03:58 → ANH3MED 12-13 00:32 → ANHIMU 12-15 12:39
PROVIDERS: Emergency Medicine; Internal Medicine; Admitting Provider Internal Medicine; Emergency Provider General Practice; PCP Family Medicine; Visit Provider Family Medicine
DX: J18.9 Pneumonia, unspecified organism (principal); J96.01 Acute respiratory failure with hypoxia; I21.A1 Myocardial infarction type 2; J44.0 Chronic obstructive pulmonary disease with (acute) lower respiratory infection; Z68.41 Body mass index [BMI] 40.0-44.9, adult; E66.9 Obesity, unspecified; Z20.822 Contact with and (suspected) exposure to COVID-19; F17.210 Nicotine dependence, cigarettes, uncomplicated; M06.9 Rheumatoid arthritis, unspecified; I10 Essential (primary) hypertension; M79.18 Myalgia, other site; Z90.710 Acquired absence of both cervix and uterus
CPT/HCPCS: 36415; 36600; 71045; 71275; 80048; 80053; 80076; 82375; 82805; 83050; 83880; 84484; 85025; 85380; 85610; 85730; 86140; 87040; 87449; 87899; 93005; 93306; 94640; 96365; 99285; A9270; C9803; J1650; J1956; J7512; Q9967; U0003; U0005